=== PATIENT | female | born 1980 | race Two or more races ===

== ENCOUNTER 2017-05-31 16:48 | Emergency (ER) | payer MEDICAID ==
--- NOTE | 2017-05-31 19:10 | ER Document Report ---
ED GI/ - General Chief Complaint: Vaginal Bleeding Stated Complaint: VAGINAL BLEEDING Time Seen by Provider: 05/31/17 18:57 Mode of Arrival: Ambulatory Information source: Patient TRAVEL OUTSIDE OF THE [place] IN LAST 30 DAYS: No - HPI Patient complains to provider of: Pelvic pain, , Vaginal bleeding Onset: Yesterday Timing/Duration: Intermittent Quality of pain: Cramping Severity at maximum: Moderate Severity in ED: Mild Location: Suprapubic, Pelvis Vaginal bleeding (Compared to normal period): Spotting Associated symptoms: Nausea Exacerbated by: Denies Relieved by: Denies Similar symptoms previously: Yes Recently seen / treated by doctor: No Notes: 05/31/17 19:09 Patient is a 36-year-old female presenting to the emergency room today complaining of pelvic cramping and vaginal bleeding that started yesterday, states that she took 3 home tests and all were positive for 30 seconds , she has an IUD that was placed within the last year, she reports associated nausea but no vomiting, no diarrhea, no dysuria or hematuria, no fever or chills - Related Data Allergies/Adverse Reactions: latex [Latex] Allergy (Verified 05/31/17 16:52) SWELLS penicillin G [Penicillin G] Allergy (Verified 05/31/17 16:52) UNKNOWN Penicillins Adverse Reaction (Verified 05/31/17 16:52) Past Medical History - General Information source: Patient Last Menstrual Period: 04/17/2017 - Social History Smoking Status: Never Smoker Chew tobacco use (# tins/day): No Frequency of alcohol use: None Drug Abuse: None Family History: Reviewed & Not Pertinent Patient has suicidal ideation: No Patient has homicidal ideation: No - Past Medical History Cardiac Medical History: Denies: Hx Heart Attack, Hx Hypertension Pulmonary Medical History: Denies: Hx Asthma Neurological Medical History: Denies: Hx Cerebrovascular Accident, Hx Seizures Renal/ Medical History: Denies: Hx Peritoneal Dialysis GI Medical History: Denies: Hx Hepatitis, Hx Hiatal Hernia, Hx Ulcer Infectious Medical History: Denies: Hx Hepatitis Past Surgical History: Denies: Hx Hysterectomy, Hx Mastectomy, Hx Open Heart Surgery, Hx Pacemaker - Immunizations Hx Diphtheria, Pertussis, Tetanus Vaccination: Yes Review of Systems - Review of Systems Constitutional: No symptoms reported EENT: No symptoms reported Cardiovascular: No symptoms reported Respiratory: No symptoms reported Gastrointestinal: No symptoms reported Genitourinary: No symptoms reported Female Genitourinary: See HPI Musculoskeletal: No symptoms reported Skin: No symptoms reported Hematologic/Lymphatic: No symptoms reported Neurological/Psychological: No symptoms reported -: Yes All other systems reviewed and negative Physical Exam - Vital signs Vitals: Temp Pulse Resp BP Pulse Ox 99.2 F 89 16 150/76 H 98 05/31/17 16:53 05/31/17 16:53 05/31/17 16:53 05/31/17 16:53 05/31/17 16:53 Interpretation: Normal - General General appearance: Appears well, Alert - HEENT Head: Normocephalic, Atraumatic Eyes: Normal Pupils: PERRL - Respiratory Respiratory status: No respiratory distress Chest status: Nontender Breath sounds: Normal Chest palpation: Normal - Cardiovascular Rhythm: Regular Heart sounds: Normal auscultation Murmur: No - Abdominal Inspection: Normal Distension: No distension Bowel sounds: Normal Tenderness: Tender - Suprapubic Organomegaly: No organomegaly - Back Back: Normal, Nontender - Extremities General upper extremity: Normal inspection, Nontender, Normal color, Normal ROM , Normal temperature General lower extremity: Normal inspection, Nontender, Normal color, Normal ROM , Normal temperature, Normal weight bearing. No: Marilou's sign - Neurological Neuro grossly intact: Yes Cognition: Normal Orientation: AAOx4 Kait Coma Scale Eye Opening: Spontaneous Kait Coma Scale Verbal: Oriented [place] Coma Scale Motor: Obeys Commands [place] Coma Scale Total: 15 Speech: Normal Motor strength normal: LUE, RUE, LLE, RLE Sensory: Normal - Psychological Associated symptoms: Tearful - Skin Skin Temperature: Warm Skin Moisture: Dry Skin Color: Normal Course - Re-evaluation Re-evalutation: 05/31/17 21:31 Lab and imaging findings were discussed with on-call INSULATION BLANK[employer] MAKER, Dr. Maddie Mathis, she recommends close follow-up for patient as this could be either an ectopic or an intrauterine even with an IUD in place, findings were discussed with patient at bedside as well as recommendations, she agrees with plan at this point in time - Vital Signs Vital signs: Temp Pulse Resp BP Pulse Ox 99.2 F 89 16 150/76 H 98 05/31/17 16:53 05/31/17 16:53 05/31/17 16:53 05/31/17 16:53 05/31/17 16:53 - Laboratory Result Diagrams: 05/31/17 19:30 05/31/17 19:30 Laboratory results interpreted by me: 05/31/17 05/31/17 19:30 19:30 Beta HCG, Quant 3024.00 H Urine Blood LARGE H Ur Leukocyte Esterase TRACE H - Diagnostic Test Radiology reviewed: Image reviewed, Reports reviewed Discharge - Discharge Clinical Impression: Qualifiers: Weeks of gestation: less than 8 weeks Qualified Code(s): Z3A.01 - Less than 8 weeks gestation of occurring while using intrauterine contraceptive device (IUD) Qualifiers: Trimester: first trimester Qualified Code(s): O09.891 - Supervision of other high risk pregnancies, first trimester Condition: Stable Disposition: HOME, SELF-CARE Instructions: ([facility]), Pelvic Pain in ([facility]), Vaginal Bleeding ([facility]), Ectopic Precaution ([facility]) Additional Instructions: [facility]up with [facility] within the next 2-3 days for repeat evaluation with repeat blood work and possible ultrasound if needed. Return to the emergency room immediately if symptoms worsen or any additional concerns. Referrals: RAJAT WALKER MD [PRISCILA FROST] - Follow up as needed
[2017-05-31 19:44] LABS: ABSOLUTE EOSINOPHILS # (AUTO) 0.1 10^3/uL (0.0-0.6); ABSOLUTE LYMPHOCYTES (AUTO) 2.1 10^3/uL (0.5-4.7); ABSOLUTE MONOCYTES (AUTO) 0.6 10^3/uL (0.1-1.4); ABSOLUTE NEUT (AUTO) 7.1 10^3/uL (1.7-8.2); BASOPHILS % (AUTO) 0.4 % (0-2); EOSINOPHILS % (AUTO) 0.7 % (0-6); HEMATOCRIT 37.8 % (36.0-47.0); HEMOGLOBIN 13.1 g/dL (12.0-15.5); HGB HCT DIFFERENCE 1.5; LYMPHOCYTES % (AUTO) 21.8 % (13-45); MEAN CORPUSCULAR HGB CONC 34.6 g/dL (32.0-36.0); MEAN CORPUSCULAR VOLUME 90 fl (80-97); MONOCYTES % (AUTO) 5.7 % (3-13); RED BLOOD COUNT 4.22 10^6/uL (3.72-5.28); RED CELL DISTRIBUTION WIDTH 12.7 % (11.5-14.0); SEGMENTED NEUTROPHILS % (AUTO) 71.4 % (42-78); WHITE BLOOD COUNT 9.9 10^3/uL (4.0-10.5)
[2017-05-31 19:52] LABS: BILIRUBIN,URINE NEGATIVE (NEGATIVE); GLUCOSE, URINE NEGATIVE (NEGATIVE); KETONES,URINE NEGATIVE (NEGATIVE); LEUKOCYTE ESTERASE,URINE TRACE (NEGATIVE); NITRITE,URINE NEGATIVE (NEGATIVE); PROTEIN,URINE NEGATIVE (NEGATIVE); URINE SPECIFIC GRAVITY 1.013; UROBILINOGEN,URINE NEGATIVE mg/dL (<2.0)
[2017-05-31 19:55] LABS: APPEARANCE,URINE CLEAR
[2017-05-31 20:02] LABS: ALANINE AMINOTRANSFERASE 27 U/L (9-52); ALBUMIN 4.4 g/dL (3.5-5.0); ALKALINE PHOSPHATASE 94 U/L (38-126); ANION GAP 13 (5-19); ASPARTATE AMINO TRANSFERASE 16 U/L (14-36); BILIRUBIN,DIRECT 0.2 mg/dL (0.0-0.4); BILIRUBIN,TOTAL 0.3 mg/dL (0.2-1.3); BLOOD UREA NITROGEN 7 mg/dL (7-20); CALCIUM 9.3 mg/dL (8.4-10.2); CARBON DIOXIDE 24 mmol/L (22-30); CHLORIDE 106 mmol/L (98-107); CREATININE RESULT 0.66 mg/dL (0.52-1.25); GLUCOSE 79 mg/dL (75-110); POTASSIUM 4.1 mmol/L (3.6-5.0); SODIUM 143.4 mmol/L (137-145); TOTAL PROTEIN 6.9 g/dL (6.3-8.2)
--- NOTE | 2017-05-31 21:21 | RADIOLOGY REPORT (SQ) ---
EXAM DESCRIPTION: U/S OB TRANSVAG W/DOPPLER COMPLETED DATE/TIME: 05/31/2017 9:12 pm REASON FOR STUDY: pelvic pain COMPARISON: None. TECHNIQUE: Transvaginal static and realtime grayscale images acquired of the pelvis. Additional ketan cted spectral and color Doppler images recorded. All images stored on PACs. BHC,024. LIMITATIONS: None. FINDINGS: UTERUS: No visualized intrauterine . An IUD is present. RIGHT ADNEXA: Normal ovary with normal vascular flow. No adnexal free fluid. No adnexal masses. LEFT ADNEXA: Normal ovary with normal vascular flow. No adnexal free fluid. No adnexal masses. FREE FLUID: None. OTHER: No other significant finding. IMPRESSION: NO VISUALIZED INTRA- OR EXTRAUTERINE . AN IUD IS PRESENT. bHCG LEVEL TOO LOW TO EXPECT VISUALIZATION OF . ECTOPIC CANNOT BE EXCLUDED. FOLLOW-UP ULTRASOUND AND SERIAL BHCG LEVELS STRONGLY RECOMMENDED TO ACCURATELY ASSESS STATU S. TECHNICAL DOCUMENTATION: JOB ID: [id number] [employer]- All Rights Reserved
[2017-05-31 22:19] VITALS: BP 124/74
== END 2017-05-31 22:20 | disposition home or self-care (01) ==
LOC: ER 16:48
DX: O09.891 Supervision of other high risk pregnancies, first trimester (principal); O26.31 Retained intrauterine contraceptive device in pregnancy, first trimester; O20.9 Hemorrhage in early pregnancy, unspecified; Z3A.01 Less than 8 weeks gestation of pregnancy; Z91.040 Latex allergy status; Z88.0 Allergy status to penicillin
CPT/HCPCS: 99284; 96372; 86900; 86901; 36415; 86850; 84702; 85025; 80053; 81001; 76817; 93976; J2790

== ENCOUNTER 2017-06-04 12:01 | Emergency (ER) | payer MEDICAID ==
--- NOTE | 2017-06-04 12:08 | ER Document Report ---
ED Medical Screen (RME) - General Chief Complaint: Pelvic Pain Stated Complaint: REFERRAL Time Seen by Provider: 06/04/17 12:06 Mode of Arrival: Ambulatory Information source: Patient Notes: 36-year-old female who was diagnosed with ectopic a few days prior had methotrexate presents with complaints of pelvic pain cramping. Patient denies any fevers or chills notes she went back to the office today and they noted more fluid and was sent in for evaluation I have greeted and performed a rapid initial assessment of this patient. A comprehensive ED assessment and evaluation of the patient, analysis of test results and completion of the medical decision making process will be conducted by additional ED providers. PHYSICAL EXAMINATION: GENERAL: Well-appearing, well-nourished and in moderate distress HEAD: Atraumatic, normocephalic. EYES: Pupils equal round extraocular movements intact, conjunctiva are normal. ENT: Nares patent NECK: Normal range of motion LUNGS: No respiratory distress Musculoskeletal: Normal range of motion NEUROLOGICAL: Normal speech, normal gait. PSYCH: Normal mood, normal affect. SKIN: Warm, Dry, normal turgor, no rashes or lesions noted. TRAVEL OUTSIDE OF THE [place] IN LAST 30 DAYS: No - Related Data Allergies/Adverse Reactions: latex [Latex] Allergy (Verified 05/31/17 16:52) SWELLS penicillin G [Penicillin G] Allergy (Verified 05/31/17 16:52) UNKNOWN Penicillins Adverse Reaction (Verified 05/31/17 16:52) Past Medical History - Past Medical History Cardiac Medical History: Denies: Hx Heart Attack, Hx Hypertension Pulmonary Medical History: Denies: Hx Asthma Neurological Medical History: Denies: Hx Cerebrovascular Accident, Hx Seizures Renal/ Medical History: Denies: Hx Peritoneal Dialysis GI Medical History: Denies: Hx Hepatitis, Hx Hiatal Hernia, Hx Ulcer Infectious Medical History: Denies: Hx Hepatitis Past Surgical History: Denies: Hx Hysterectomy, Hx Mastectomy, Hx Open Heart Surgery, Hx Pacemaker - Immunizations Hx Diphtheria, Pertussis, Tetanus Vaccination: Yes Physical Exam - Vital signs Vitals: Temp Pulse Resp BP Pulse Ox 99 F 95 20 112/53 L 95 06/04/17 12:02 06/04/17 12:02 06/04/17 12:02 06/04/17 12:02 06/04/17 12:02 Course - Vital Signs Vital signs: Temp Pulse Resp BP Pulse Ox 99 F 95 20 112/53 L 95 06/04/17 12:02 06/04/17 12:02 06/04/17 12:02 06/04/17 12:02 06/04/17 12:02
[2017-06-04] MEDS ORDERED: NORMAL SALINE 1000 ML 1,000 ML IV PRN (12:12)
[2017-06-04] MEDS ORDERED: HYDROMORPHONE HCL INJ/PF 2 MG/ML AMPULE IV ONE (12:12)
--- NOTE | 2017-06-04 12:28 | ER Document Report ---
ED GI/ - General Chief Complaint: Pelvic Pain Stated Complaint: REFERRAL Time Seen by Provider: 06/04/17 12:06 Mode of Arrival: Ambulatory Information source: Patient Notes: Pt is a 36 TRAVEL OUTSIDE OF THE [place] IN LAST 30 DAYS: No - Related Data Allergies/Adverse Reactions: latex [Latex] Allergy (Verified 05/31/17 16:52) SWELLS penicillin G [Penicillin G] Allergy (Verified 05/31/17 16:52) UNKNOWN Penicillins Adverse Reaction (Verified 05/31/17 16:52) Home Medications: Current Home Medications Bupropion HCl [Wellbutrin Xl 150 mg 24hr Tablet] 150 mg PO DAILY 06/04/17 [ History] Eszopiclone [Lunesta] 2 mg PO QHS 06/04/17 [History] Lorazepam [Ativan 1 mg Tablet] 1 mg PO DAILYP PRN 06/04/17 [History] Vortioxetine Hydrobromide [Brintellix] 20 mg PO DAILY 06/04/17 [History] Past Medical History - General Information source: Patient - Social History Smoking Status: Never Smoker Chew tobacco use (# tins/day): No Frequency of alcohol use: None Drug Abuse: None Family History: Reviewed & Not Pertinent Patient has suicidal ideation: No Patient has homicidal ideation: No - Past Medical History Cardiac Medical History: Denies: Hx Heart Attack, Hx Hypertension Pulmonary Medical History: Denies: Hx Asthma Neurological Medical History: Denies: Hx Cerebrovascular Accident, Hx Seizures Renal/ Medical History: Denies: Hx Peritoneal Dialysis GI Medical History: Denies: Hx Hepatitis, Hx Hiatal Hernia, Hx Ulcer Infectious Medical History: Denies: Hx Hepatitis Past Surgical History: Reports: Hx Section, Hx Orthopedic Surgery - back sx 08/30. Denies: Hx Hysterectomy, Hx Mastectomy, Hx Open Heart Surgery, Hx Pacemaker - Immunizations Hx Diphtheria, Pertussis, Tetanus Vaccination: Yes Physical Exam - Vital signs Vitals: Temp Pulse Resp BP Pulse Ox 99 F 95 20 112/53 L 95 06/04/17 12:02 06/04/17 12:02 06/04/17 12:02 06/04/17 12:02 06/04/17 12:02 Course - Vital Signs Vital signs: Temp Pulse Resp BP Pulse Ox 97.8 F 104 H 14 115/66 97 06/04/17 17:53 06/04/17 18:15 06/04/17 18:15 06/04/17 18:15 06/04/17 18:15 - Laboratory Result Diagrams: 06/04/17 14:35 06/04/17 14:35 Discharge - Discharge Clinical Impression: Ectopic Condition: Stable Disposition: ADMITTED INPATIENT Admitting Provider: [facility] Admitted: OR
[2017-06-04] MEDS ORDERED: METHYLENE BLUE 50 MG/10 ML AMPULE ONE (13:51)
[2017-06-04] MEDS ORDERED: LIDOCAINE 1%/EPINEPHRINE INJ 20 ML VIAL ONE (13:51)
[2017-06-04] MEDS ORDERED: FENTANYL CITRATE INJ/PF 100 MCG/2 ML AMPUL ONE ×3 (14:04→15:09)
[2017-06-04] MEDS ORDERED: ACETAMINOPHEN 0 ML IV ONE (14:05)
[2017-06-04] MEDS ORDERED: MIDAZOLAM 2 MG/2 ML INJ ONE ×2 (14:05→15:09)
[2017-06-04] MEDS ORDERED: PROPOFOL INJ 200 MG/20 ML VIAL IV ONE ×2 (14:05→15:10)
[2017-06-04 14:51] LABS: ABSOLUTE LYMPHOCYTES (AUTO) 1.4 10^3/uL (0.5-4.7); ABSOLUTE MONOCYTES (AUTO) 0.3 10^3/uL (0.1-1.4); ABSOLUTE NEUT (AUTO) 8.9 10^3/uL (1.7-8.2); BASOPHILS % (AUTO) 0.5 % (0-2); EOSINOPHILS % (AUTO) 0.2 % (0-6); HEMATOCRIT 34.4 % (36.0-47.0); HEMOGLOBIN 11.7 g/dL (12.0-15.5); HGB HCT DIFFERENCE 0.7; LYMPHOCYTES % (AUTO) 12.9 % (13-45); MEAN CORPUSCULAR HEMOGLOBIN 30.6 pg (27.0-33.4); MEAN CORPUSCULAR HGB CONC 33.9 g/dL (32.0-36.0); MEAN CORPUSCULAR VOLUME 90 fl (80-97); MONOCYTES % (AUTO) 3.1 % (3-13); RED BLOOD COUNT 3.81 10^6/uL (3.72-5.28); RED CELL DISTRIBUTION WIDTH 12.7 % (11.5-14.0); SEGMENTED NEUTROPHILS % (AUTO) 83.3 % (42-78); WHITE BLOOD COUNT 10.7 10^3/uL (4.0-10.5)
[2017-06-04] MEDS ORDERED: IBUPROFEN INJ 800 MG/8 ML VIAL IV ONE (15:10)
[2017-06-04] MEDS ORDERED: EPHEDRINE SULFATE INJ 50 MG/1 ML AMPULE ONE (15:10)
[2017-06-04] MEDS ORDERED: ACETAMINOPHEN 100 ML IV ONE (15:10)
[2017-06-04 15:31] LABS: ALANINE AMINOTRANSFERASE 28 U/L (9-52); ALBUMIN 3.9 g/dL (3.5-5.0); ALKALINE PHOSPHATASE 95 U/L (38-126); ANION GAP 12 (5-19); ASPARTATE AMINO TRANSFERASE 14 U/L (14-36); BILIRUBIN,DIRECT 0.3 mg/dL (0.0-0.4); BILIRUBIN,TOTAL 0.6 mg/dL (0.2-1.3); BLOOD UREA NITROGEN 8 mg/dL (7-20); CALCIUM 8.7 mg/dL (8.4-10.2); CARBON DIOXIDE 25 mmol/L (22-30); CHLORIDE 104 mmol/L (98-107); CREATININE RESULT 0.61 mg/dL (0.52-1.25); GLUCOSE 83 mg/dL (75-110); POTASSIUM 3.8 mmol/L (3.6-5.0); SODIUM 141.2 mmol/L (137-145); TOTAL PROTEIN 6.1 g/dL (6.3-8.2)
[2017-06-04] MEDS ORDERED: MEPERIDINE HCL/PF INJ 25 MG/1 ML DISP.SYRIN IV PRN (17:01)
[2017-06-04] MEDS ORDERED: FENTANYL CITRATE INJ/PF 100 MCG/2 ML AMPUL IV PRN ×3 (17:01)
[2017-06-04] MEDS ORDERED: DIPHENHYDRAMINE HCL 50 MG/ML VIAL IV PRN (17:01)
[2017-06-04] MEDS ORDERED: PROMETHAZINE HCL INJ 25 MG/1 ML VIAL IV PRN ×2 (17:01)
[2017-06-04] MEDS ORDERED: MORPHINE SULFATE 10 MG/ML INJ IV PRN (17:01)
[2017-06-04] MEDS ORDERED: ONDANSETRON HCL INJ/PF 4 MG/2 ML SDV IV PRN (17:01)
[2017-06-04] MEDS ORDERED: NEOSTIGMINE METHYLSULFATE 10 MG/10 ML VIAL ONE (17:24)
[2017-06-04] MEDS ORDERED: ONDANSETRON HCL INJ/PF 4 MG/2 ML SDV ONE (17:24)
[2017-06-04] MEDS ORDERED: LIDOCAINE 2% INJ-PF (20 MG/ML) 2 ML AMPUL ONE (17:24)
[2017-06-04] MEDS ORDERED: GLYCOPYRROLATE INJ 0.4 MG/2 ML VIAL ONE (17:24)
[2017-06-04] MEDS ORDERED: SUCCINYLCHOLINE CHLORIDE INJ 200 MG/10 ML VIAL ONE (17:24)
[2017-06-04] MEDS ORDERED: ROCURONIUM BROMIDE INJ 50 MG/5 ML VIAL IV ONE (17:24)
[2017-06-04] MEDS ORDERED: DEXAMETHASONE SOD PHOSPHATE INJ 4 MG/1 ML VIAL ONE (17:24)
[2017-06-04] MEDS ORDERED: MORPHINE SULFATE 10 MG/ML INJ IM PRN (17:36)
[2017-06-04] MEDS ORDERED: OXYCODONE-ACETAMINOPHEN 5-325 MG TABLET PO PRN (17:39)
[2017-06-04] MEDS ORDERED: IBUPROFEN 800 MG TABLET PO PRN (17:40)
--- NOTE | 2017-06-04 18:43 | OPERATIVE REPORT E ---
Operative Report NAME: MYRTLE TREJO : 1980 AGE: 36Y DATE OF SURGERY: 06/04/2017 ROOM: ED17 PREOPERATIVE DIAGNOSIS: Ectopic and retained ParaGard IUD. POSTOPERATIVE DIAGNOSIS: Ectopic and retained ParaGard IUD. OPERATION: 1. Diagnostic laparoscopy with retained IUD removal. 2. Left salpingectomy. SURGEON: DARWIN CHANG M.D. ANESTHESIA: Dr. Parra with general. FINDINGS: 1. Approximately 100 mL of clotted blood and left hydrosalpinx that was well adhered to some epiploica of the descending bowel. 2. Ectopic not completely visible; however, the fimbriated end of the fallopian tube was bleeding, indicative of an ectopic that may have come out of the end of the fallopian tube. 3. There was decidua type tissue that was seen to be mixed in with the blood that was adhering the fallopian tube to the bowel of the epiploica. I did ask intraoperatively for Dr. Lee to step in to confirm that indeed I was visualizing some stenotic epiploica and no other bowel involvement of the ectopic. He indicated that these were indeed just an inflammatory reaction of epiploica on the bowel. 4. ParaGard IUD strings could not be visualized on cervical exam. PATHOLOGY: Left fallopian tube. PROCEDURE IN DETAIL: The patient was taken to the operating room, prepared and draped in a normal sterile fashion in the dorsal lithotomy position. Under sterile conditions, an in-and-out catheterization was performed of approximately 150 mL of clear urine. A sterile speculum was then placed into the vagina and the cervix was grasped by the anterior lip with a single-tooth tenaculum and transected with the Hulka clamp in order to assist with the uterine manipulation. The speculum was removed. The gloves were changed and attention was then turned to the upper portion of the case, where lidocaine was injected at the 3 injection sites. An umbilical skin incision was made to accommodate a 10 mm laparoscopic port. The Veress needle was introduced and the peritoneal cavity placement was confirmed with free flow of sterile water, beginning insufflative pressure of less than 7 mmHg. The abdomen was then inflated to approximately 13 mmHg and a 10 mm port was placed through this incision and the laparoscopic camera was introduced, with immediate notation of the adhesions and blood clot of the left adnexa to the descending bowel epiploica. Another 5 mm trocar was placed under direct visualization and a blunt probe was inserted and the bowel was teased away from the left ovary. I then began with an atraumatic grasper again to peel away the epiploica from the fallopian tube and better identify it. I used some hydrodissection with the suction and irrigation until I was able to adequately identify the structures. I then called Dr. Lee to confirm my suspicions of the stenotic inflammatory epiploica on the bowel that was a result of the ectopic, and which he did. The left fallopian tube was then completely identified and another 5 mm port was placed on the patient's right for my assistance, first kristy Sebastian, to help with elevation of the fallopian tube, which she did by grasping with atraumatic grasper the fallopian tube and elevating it so that I could identify the mesosalpinx and remove the fallopian tube, starting at the fundus of the uterus using a LigaSure and carrying through on the mesosalpinx until the fallopian tube was completely released. The fallopian tube was then bagged and removed through the 10 mm port using an EndoCatch bag. I then copiously irrigated once more and suctioned away as much material as possible to decrease postoperative pain. I reinspected the peritoneal cavity and found it to be hemostatic with no further bleeding noted, and the right fallopian tube was carefully inspected and found to be completely normal in appearance. I then removed the ports and deflated the abdomen through the umbilical port. The fascia at this port site was then closed with a single stitch of 0-Vicryl. The skin was closed with 4-0 Vicryl. Then I turned my attention to the lower portion of the case and once again drained the bladder of approximately 20 mL of clear urine and placed a sterile speculum into the vagina, removing the Hulka clamp and again grasping the anterior lip of the cervix with a single-tooth tenaculum. I prepared a hysteroscope; however, I did use a uterine sounder and sounded the uterus to approximately 8 cm and noted that I could note some resistance with the uterine sound. Therefore, I placed a Alexandra clamp into the cervical os and was mario enough to be able to grasp the IUD and remove it that way without any difficulty using gentle traction. I then concluded the case. Sponge, lap and needle counts were correct x2. The patient was taken to recovery in stable condition. DICTATING PHYSICIAN: DARWIN CHANG M.D. [id number] PHY#: [id number] ID: [id number] JOB#: [id number] ACCT: [id number] cc:DARWIN CHANG M.D. >
[2017-06-04 19:37] VITALS: BP 114/61
== END 2017-06-04 19:50 | disposition home or self-care (01) ==
LOC: ER 12:01 → UNDOADMIN 12:55 → EH 12:55 → UNDODISIN 19:20 → ER 19:50
PROC: 10T24ZZ Resection of Products of Conception, Ectopic, Percutaneous Endoscopic Approach (ICD-10-PCS; principal; 2017-06-04 13:30)
PROC: 0UT64ZZ Resection of Left Fallopian Tube, Percutaneous Endoscopic Approach (ICD-10-PCS; 2017-06-04 13:30)
DX: O00.102 Left tubal pregnancy without intrauterine pregnancy (principal); Z30.432 Encounter for removal of intrauterine contraceptive device; Z88.0 Allergy status to penicillin; Z91.040 Latex allergy status
CPT/HCPCS: 99284; 86900; 86901; 36415; 86870; 86850; 84702; 85025; 80053; 88305 ×2; 59151; J2250; J3490 ×4; J1100; J3010; J0330; J2405; J2704; J0131; J1741; 840; Q9968

== ENCOUNTER 2018-02-20 00:42 | Emergency (ER) | payer MEDICAID, OTHER ==
[2018-02-20] MEDS ORDERED: ONDANSETRON HCL INJ/PF 4 MG/2 ML SDV IV ONE (03:23)
[2018-02-20] MEDS ORDERED: NORMAL SALINE 1000 ML 1,000 ML IV ONE ×2 (03:24→08:10)
[2018-02-20] MEDS ORDERED: FAMOTIDINE INJ/PF 20 MG/2 ML SDV IV ONE (03:34)
--- NOTE | 2018-02-20 03:38 | ER Document Report ---
ED Medical Screen (RME) - General Chief Complaint: Nausea/Vomiting Stated Complaint: VOMITING Time Seen by Provider: 02/20/18 03:15 Mode of Arrival: Ambulatory Information source: Patient Notes: Patient is a 37-year-old female who presents with 1 day of vomiting. Patient reports she has vomited at least 12 times. Patient reports severe burning in her epigastric area. Patient denies diarrhea, fever or urinary symptoms. Patient reports she stopped taking her Latuda approximately 2 weeks ago because she did not like the way it makes her feel. Repeated patient's vital signs in triage, patient's heart rate is currently 93 and regular, respiratory rate of 18, pulse ox is 95%. Patient remains tearful and shaking. Exam: Abdomen soft, nontender. Lung sounds clear to auscultation bilaterally. I have greeted and performed a rapid initial assessment of this patient. A comprehensive ED assessment and evaluation of the patient, analysis of test results and completion of the medical decision making process will be conducted by additional ED providers. Dictation of this chart was performed using voice recognition software; therefore, there may be some unintended grammatical errors. TRAVEL OUTSIDE OF THE [place] IN LAST 30 DAYS: No - Related Data Allergies/Adverse Reactions: latex [Latex] Allergy (Verified 05/31/17 16:52) SWELLS penicillin G [Penicillin G] Allergy (Verified 05/31/17 16:52) UNKNOWN Penicillins Adverse Reaction (Verified 05/31/17 16:52) Past Medical History - Past Medical History Cardiac Medical History: Denies: Hx Heart Attack, Hx Hypertension Pulmonary Medical History: Denies: Hx Asthma Neurological Medical History: Denies: Hx Cerebrovascular Accident, Hx Seizures Renal/ Medical History: Denies: Hx Peritoneal Dialysis GI Medical History: Denies: Hx Hepatitis, Hx Hiatal Hernia, Hx Ulcer Infectious Medical History: Denies: Hx Hepatitis Past Surgical History: Reports: Hx Section, Hx Orthopedic Surgery - back sx 08/30. Denies: Hx Hysterectomy, Hx Mastectomy, Hx Open Heart Surgery, Hx Pacemaker - Immunizations Hx Diphtheria, Pertussis, Tetanus Vaccination: Yes Physical Exam - Vital signs Vitals: Temp Pulse Resp BP Pulse Ox 98.9 F 119 H 18 147/64 H 96 02/20/18 00:51 02/20/18 00:51 02/20/18 00:51 02/20/18 00:51 02/20/18 00:51 Course - Vital Signs Vital signs: Temp Pulse Resp BP Pulse Ox 98.9 F 119 H 18 147/64 H 96 02/20/18 00:51 02/20/18 00:51 02/20/18 00:51 02/20/18 00:51 02/20/18 00:51 Doctor's Discharge - Discharge Referrals: SURGICALIST,SURGICAL MD [Primary Care Provider] - Follow up as needed
[2018-02-20 03:50] LABS: ABSOLUTE LYMPHOCYTES (AUTO) 1.5 10^3/uL (0.5-4.7); ABSOLUTE MONOCYTES (AUTO) 0.6 10^3/uL (0.1-1.4); ABSOLUTE NEUT (AUTO) 14.3 10^3/uL (1.7-8.2); BASOPHILS % (AUTO) 0.2 % (0-2); HEMOGLOBIN 14.8 g/dL (12.0-15.5); MEAN CORPUSCULAR HEMOGLOBIN 31.3 pg (27.0-33.4); MEAN CORPUSCULAR HGB CONC 34.5 g/dL (32.0-36.0); MEAN CORPUSCULAR VOLUME 91 fl (80-97); MONOCYTES % (AUTO) 3.5 % (3-13); PLATELET COUNT 400 10^3/uL (150-450); RED BLOOD COUNT 4.74 10^6/uL (3.72-5.28); RED CELL DISTRIBUTION WIDTH 13.2 % (11.5-14.0); SEGMENTED NEUTROPHILS % (AUTO) 87.3 % (42-78); TOTAL CELLS COUNTED % (AUTO) 100 %; WHITE BLOOD COUNT 16.3 10^3/uL (4.0-10.5)
[2018-02-20 04:02] LABS: ALANINE AMINOTRANSFERASE 27 U/L (9-52); ALKALINE PHOSPHATASE 118 U/L (38-126); ANION GAP 17 (5-19); ASPARTATE AMINO TRANSFERASE 23 U/L (14-36); BILIRUBIN,DIRECT 0.4 mg/dL (0.0-0.4); BILIRUBIN,TOTAL 0.5 mg/dL (0.2-1.3); BLOOD UREA NITROGEN 9 mg/dL (7-20); CALCIUM 10.2 mg/dL (8.4-10.2); CARBON DIOXIDE 25 mmol/L (22-30); CHLORIDE 106 mmol/L (98-107); GLUCOSE 137 mg/dL (75-110); POTASSIUM 4.4 mmol/L (3.6-5.0); SODIUM 147.5 mmol/L (137-145); TOTAL PROTEIN 8.4 g/dL (6.3-8.2)
[2018-02-20 05:15] LABS: APPEARANCE,URINE SLIGHTLY-CLOUDY; BILIRUBIN,URINE NEGATIVE (NEGATIVE); COLOR,URINE YELLOW; GLUCOSE, URINE NEGATIVE (NEGATIVE); KETONES,URINE 80 mg/dL (NEGATIVE); LEUKOCYTE ESTERASE,URINE NEGATIVE (NEGATIVE); NITRITE,URINE NEGATIVE (NEGATIVE); PROTEIN,URINE >=500 mg/dL (NEGATIVE); URINE SPECIFIC GRAVITY 1.028
[2018-02-20] MEDS ORDERED: PROCHLORPERAZINE EDISYLATE INJ 10 MG/2 ML VIAL IV ONE (08:10)
[2018-02-20] MEDS ORDERED: KETOROLAC TROMETHAMINE INJ/PF 30 MG/1 ML SDV IV ONE (08:10)
[2018-02-20] MEDS ORDERED: DIPHENHYDRAMINE HCL 50 MG/ML VIAL IV ONE (08:10)
--- NOTE | 2018-02-20 08:12 | ER Document Report ---
ED General - General Chief Complaint: Nausea/Vomiting Stated Complaint: VOMITING Time Seen by Provider: 02/20/18 03:15 Mode of Arrival: Ambulatory Information source: Patient Notes: Patient presents complaining of nausea and vomiting with a burning to the epigastric area. Patient denies any fever or diarrhea. Patient denies any urinary symptoms. Patient states that she was having a panic attack which prompted her to come to the emergency department. Patient has been here for quite some time and states that her abdominal burning pain symptoms have resolved as well as the panic attack symptoms. Patient states that she does have a headache at this time. TRAVEL OUTSIDE OF THE [place] IN LAST 30 DAYS: No - HPI Onset: Yesterday Onset/Duration: Gradual Quality of pain: Achy Pain Level: 3 Associated symptoms: Headache, Nausea, Vomiting. denies: Body/muscle aches, Nonproductive cough, Productive cough, Diarrhea, Fever Exacerbated by: Denies Relieved by: Denies Similar symptoms previously: Yes Recently seen / treated by doctor: No - Related Data Allergies/Adverse Reactions: latex [Latex] Allergy (Verified 05/31/17 16:52) SWELLS penicillin G [Penicillin G] Allergy (Verified 05/31/17 16:52) UNKNOWN Penicillins Adverse Reaction (Verified 05/31/17 16:52) Past Medical History - General Information source: Patient - Social History Smoking Status: Never Smoker Chew tobacco use (# tins/day): No Frequency of alcohol use: Rare Drug Abuse: None Occupation: Loss prevention Lives with: Family Family History: Reviewed & Not Pertinent Patient has suicidal ideation: No Patient has homicidal ideation: No - Past Medical History Cardiac Medical History: Denies: Hx Heart Attack, Hx Hypertension Pulmonary Medical History: Denies: Hx Asthma Neurological Medical History: Denies: Hx Cerebrovascular Accident, Hx Seizures Renal/ Medical History: Denies: Hx Peritoneal Dialysis GI Medical History: Denies: Hx Hepatitis, Hx Hiatal Hernia, Hx Ulcer Psychiatric Medical History: Reports: Hx Anxiety, Hx Depression Infectious Medical History: Denies: Hx Hepatitis Past Surgical History: Reports: Hx Section, Hx Gynecologic Surgery - ectopic , Hx Orthopedic Surgery - back sx 08/30. Denies: Hx Hysterectomy, Hx Mastectomy, Hx Open Heart Surgery, Hx Pacemaker - Immunizations Hx Diphtheria, Pertussis, Tetanus Vaccination: Yes Review of Systems - Review of Systems Constitutional: No symptoms reported. denies: Fever EENT: No symptoms reported Cardiovascular: No symptoms reported. denies: Chest pain Respiratory: No symptoms reported. denies: Cough, Short of breath Gastrointestinal: Nausea, Vomiting. denies: Diarrhea Genitourinary: No symptoms reported. denies: Dysuria Female Genitourinary: No symptoms reported. denies: Musculoskeletal: No symptoms reported. denies: Back pain Skin: No symptoms reported. denies: Rash Hematologic/Lymphatic: No symptoms reported Neurological/Psychological: Headaches Physical Exam - Vital signs Vitals: Temp Pulse Resp BP Pulse Ox 98.9 F 119 H 18 147/64 H 96 02/20/18 00:51 02/20/18 00:51 02/20/18 00:51 02/20/18 00:51 02/20/18 00:51 - General General appearance: Appears well, Alert In distress: None - HEENT Head: Normocephalic, Atraumatic Eyes: Normal Conjunctiva: Normal Pupils: PERRL Ears: Normal Sinus: Normal Nasal: Normal Mouth/Lips: Normal Mucous membranes: Normal Pharynx: Normal. No: Erythema Neck: Normal, Supple. No: Lymphadenopathy, Meningismus - Respiratory Respiratory status: No respiratory distress Chest status: Nontender Breath sounds: Normal. No: Rales, Rhonchi, Stridor, Wheezing Chest palpation: Normal - Cardiovascular Rhythm: Regular. No: Tachycardia Heart sounds: S1 appreciated, S2 appreciated Murmur: No - Abdominal Inspection: Normal Distension: No distension Bowel sounds: Normal Tenderness: Nontender Organomegaly: No organomegaly - Back Back: Normal, Nontender. No: CVA tenderness - Extremities General upper extremity: Normal inspection, Normal ROM General lower extremity: Normal inspection, Normal ROM - Neurological Neuro grossly intact: Yes Cognition: Normal Kait Coma Scale Eye Opening: Spontaneous Kait Coma Scale Verbal: Oriented Kait Coma Scale Motor: Obeys Commands [place] Coma Scale Total: 15 Speech: Normal. No: Dysarthria Cranial nerves: Normal Motor strength normal: LUE, RUE, LLE, RLE - Psychological Associated symptoms: Normal affect, Normal mood. No: Anxious - Skin Skin Temperature: Warm Skin Moisture: Dry Skin Color: Normal Course - Re-evaluation Re-evalutation: 02/20/18 09:07 Patient's abdomen soft, nontender. No guarding. Patient reports that headache pain is now resolved at this time. Patient denies any complaints. Patient encouraged to follow-up with her primary doctor to discuss her treatment of her anxiety and depression symptoms as well as the side effects of Latuda. Patient encouraged to follow-up with her primary doctor to have a urinalysis recheck. Patient advised of hematuria noted on UA. Patient denies any urinary symptoms. Patient states that she is not currently on her period as she takes her control constantly and skips having her menses. Patient without any flank abdominal or side tenderness at this time. No nausea or vomiting. - Vital Signs Vital signs: Temp Pulse Resp BP Pulse Ox 98.6 F 74 17 111/73 97 02/20/18 09:57 02/20/18 09:57 02/20/18 09:57 02/20/18 09:57 02/20/18 09:57 - Laboratory Result Diagrams: 02/20/18 03:40 02/20/18 03:40 Laboratory results interpreted by me: 02/20/18 02/20/18 02/20/18 03:40 03:40 04:42 WBC 16.3 H Seg Neutrophils % 87.3 H Lymphocytes % 9.0 L Absolute Neutrophils 14.3 H Sodium 147.5 H Glucose 137 H Total Protein 8.4 H Urine Protein >=500 H Urine Ketones 80 H Urine Blood MODERATE H Urine Urobilinogen 2.0 H 02/20/18 09:08 Labs- Entire Visit 02/20/18 02/20/18 02/20/18 03:40 03:40 03:40 WBC 16.3 H RBC 4.74 Hgb 14.8 Hct 43.0 MCV 91 MCH 31.3 MCHC 34.5 RDW 13.2 Plt Count 400 Seg Neutrophils % 87.3 H Lymphocytes % 9.0 L Monocytes % 3.5 Eosinophils % 0.0 Basophils % 0.2 Absolute Neutrophils 14.3 H Absolute Lymphocytes 1.5 Absolute Monocytes 0.6 Absolute Eosinophils 0.0 Absolute Basophils 0.0 Sodium 147.5 H Potassium 4.4 Chloride 106 Carbon Dioxide 25 Anion Gap 17 BUN 9 Creatinine 0.73 Est GFR ( Amer) > 60 Est GFR (Non-Af Amer) > 60 Glucose 137 H Calcium 10.2 Total Bilirubin 0.5 Direct Bilirubin 0.4 Neonat Total Bilirubin Not Reportable Neonat Direct Bilirubin Not Reportable Neonat Indirect Bili Not Reportable AST 23 ALT 27 Alkaline Phosphatase 118 Total Protein 8.4 H Albumin 5.0 Lipase 45.9 Urine Color Urine Appearance Urine pH Ur Specific [place] Urine Protein Urine Glucose (UA) Urine Ketones Urine Blood Urine Nitrite Urine Bilirubin Urine Urobilinogen Ur Leukocyte Esterase Urine WBC (Auto) Urine RBC (Auto) Squamous Epi Cells Auto Urine Mucus (Auto) Urine Ascorbic Acid Urine HCG, Qual 02/20/18 04:42 WBC RBC Hgb Hct MCV MCH MCHC RDW Plt Count Seg Neutrophils % Lymphocytes % Monocytes % Eosinophils % Basophils % Absolute Neutrophils Absolute Lymphocytes Absolute Monocytes Absolute Eosinophils Absolute Basophils Sodium Potassium Chloride Carbon Dioxide Anion Gap BUN Creatinine Est GFR ( Amer) Est GFR (Non-Af Amer) Glucose Calcium Total Bilirubin Direct Bilirubin Neonat Total Bilirubin Neonat Direct Bilirubin Neonat Indirect Bili AST ALT Alkaline Phosphatase Total Protein Albumin Lipase Urine Color YELLOW Urine Appearance SLIGHTLY-CLOUDY Urine pH 6.0 Ur Specific [place] 1.028 Urine Protein >=500 H Urine Glucose (UA) NEGATIVE Urine Ketones 80 H Urine Blood MODERATE H Urine Nitrite NEGATIVE Urine Bilirubin NEGATIVE Urine Urobilinogen 2.0 H Ur Leukocyte Esterase NEGATIVE Urine WBC (Auto) 7 Urine RBC (Auto) 159 Squamous Epi Cells Auto 2 Urine Mucus (Auto) MANY Urine Ascorbic Acid NEGATIVE Urine HCG, Qual NEGATIVE Discharge - Discharge Clinical Impression: Panic attack Headache Qualifiers: Headache type: unspecified Headache chronicity pattern: unspecified pattern Intractability: not intractable Qualified Code(s): R51 - Headache Nausea and vomiting Qualifiers: Vomiting type: unspecified Vomiting Intractability: non-intractable Qualified Code(s): R11.2 - Nausea with vomiting, unspecified Hematuria Qualifiers: Hematuria type: unspecified type Qualified Code(s): R31.9 - Hematuria, unspecified Condition: Stable Disposition: HOME, SELF-CARE Instructions: Intravenous Compazine for Headaches ([facility]), Headache ([facility]), Hematuria ([facility]), Intravenous (IV) Fluids ([facility]), Panic Attack ([facility]), Vomiting ( [facility]) Additional Instructions: Return immediately for any new or worsening symptoms Followup with your primary care provider, call tomorrow to make a followup appointment Your urinalysis showed that your urine had red blood cells in it. Follow-up with your primary doctor to have a repeat urinalysis on Friday. A urine culture is pending, we will call if you need any different treatment. Prescriptions: Ondansetron HCl [Zofran 4 mg Tablet] 1 - 2 tab PO Q6 PRN #15 tablet PRN Reason: Forms: Return to Work [facility] - 02/23/18
[2018-02-20 08:32] LABS: LIPASE 45.9 U/L (23-300)
[2018-02-20 10:03] VITALS: BP 111/73
== END 2018-02-20 10:07 | disposition home or self-care (01) ==
LOC: ER 00:42
DX: F41.0 Panic disorder [episodic paroxysmal anxiety] (principal); R11.2 Nausea with vomiting, unspecified; R10.13 Epigastric pain; R31.9 Hematuria, unspecified; R51 Headache; Z91.040 Latex allergy status
CPT/HCPCS: 99284; 96361; 96374; 96375; 36415; 87086; 83690; 85025; 81025; 80053; 81001; J1200; J1885; J0780; J2405; J7030; S0028